=== PATIENT | female | born 1985 | race Caucasian/White ===

== ENCOUNTER 2018-09-08 20:00 | Emergency (ER) | payer BC ==
[2018-09-08] MEDS ORDERED: Sodium Chloride 0.9% 10 ML Syringe FLUSH PRN (20:29)
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
[2018-09-08 21:09] LABS: BARBITURATE SCREEN,URINE NEGATIVE (NEGATIVE); BENZODIAZEPINES SCREEN,URINE NEGATIVE (NEGATIVE); TCA SCREEN,URINE NEGATIVE (NEGATIVE); THC SCREEN,URINE 50 NG/ML NEGATIVE (NEGATIVE)
[2018-09-08 21:19] LABS: CHLORIDE,CL 103 mmol/L (98-107); SODIUM,NA 138 mmol/L (136-145)
== END 2018-09-08 22:15 | disposition home or self-care (01) ==
LOC: LL.ED 20:00
DX: O99.89 Other specified diseases and conditions complicating pregnancy, childbirth and the puerperium (principal); M54.2 Cervicalgia; O99.282 Endocrine, nutritional and metabolic diseases complicating pregnancy, second trimester; E88.09 Other disorders of plasma-protein metabolism, not elsewhere classified; E87.6 Hypokalemia; E83.42 Hypomagnesemia; Z79.899 Other long term (current) drug therapy; Z3A.29 29 weeks gestation of pregnancy; V89.2XXA Person injured in unspecified motor-vehicle accident, traffic, initial encounter
CPT/HCPCS: 36415; 72050; 80053; 80305-QW; 81001; 82150; 82550; 82553; 83605; 83690; 83735; 84484; 84550; 84702; 85025; 85610; 85730; 87086; 99285-25; G0480

== ENCOUNTER 2021-03-06 21:54 | Emergency (ER) | payer BC ==
[2021-03-06] MEDS ORDERED: Sodium Chloride 0.9% 10 ML Syringe FLUSH PRN (22:12)
--- NOTE | 2021-03-06 22:29 | EDM.PDOC ---
ED HPI GENERAL MEDICAL PROBLEM - General Chief Complaint: General Stated Complaint: CHEST PAIN Time Seen by Provider: 03/06/21 22:10 Source of Information: Reports: Patient History Limitations: Reports: No Limitations - History of Present Illness INITIAL COMMENTS - FREE TEXT/NARRATIVE: Patient presents to the ED for chest pain that started at about 2130. She was sitting on the couch watching football without any stress or trauma. it was sharp, substernal, intermittant and acccompanied with diaphoresis. No recent physical activity or exertion. She had recently eaten and over the last day eaten really rich foods due to celebrating [place] early. She has been drinking alcohol tonight, 3-4 drinks. This is not a daily thing for her but she does drink socially without problems. Not a smoker. recent menstrual cycle is just finishing but states could be . NOt on control. No family history of blood clots, heart attacks or stroke. she did recently get over a upper respiratory illness that had cough, fever runny nose. did not go get tested for covid or seen. Is not vaccinated for Covid 19. AT interview pain is gone, 0/10 at it's worse is 5/10, comes and goes without any aggrevating or alleviating factors. Did not take anything for it,. Onset: Today, Sudden Duration: Intermittent Location: Reports: Chest Quality: Reports: Stabbing (with radiation to both sides of the chest) Improves with: Reports: None Worsens with: Reports: None Associated Symptoms: Reports: Diaphoresis - Related Data Allergies Allergy/AdvReac Type Severity Reaction Status Date / Time No Known Allergies Allergy Verified 03/06/21 21:57 Home Meds: Home Meds Cyclobenzaprine [Flexeril] 5 mg PO TID PRN 09/08/18 [History] PNV95/Ferrous Fumarate/FA [ Multivitamin Tablet] 1 tab PO DAILY 09/08/18 [History] Past Medical History HEENT History: Reports: None. Denies: Impaired Vision CAREER SERVICES COORDINATOR History: Reports: Musculoskeletal History: Reports: None. Denies: Arthritis, Back Pain, Chronic, Fracture, Neck Pain, Chronic - Past Surgical History Head Surgeries/Procedures: Reports: None HEENT Surgical History: Reports: None. Denies: Adenoidectomy, Myringotomy w Tube(s), Tonsillectomy GI Surgical History: Reports: None. Denies: Hernia, Abdominal, Hernia, Inguinal, Hernia Repair/Other Female Surgical History: Reports: Breast Reduction, Other (See Below) Other Female Surgeries/Procedures: Bilateral breast reduction at age 17. C- section at full-term with first secondary to bradycardia and distress with contractions with no complications during or delivery. Neurological Surgical History: Reports: None - Past Imaging History Past Imaging History: Reports: Ultrasound (OB ultrasounds) Social & Family History - Tobacco Use Tobacco Use Status *Q: Never Tobacco User - Alcohol Use Alcohol Use History: Yes Date/Time of Last Drink Comment: several drinks tonight Alcohol Use in Last Twelve Months: Yes Alcohol Use Frequency: Socially - Recreational Drug Use Recreational Drug Use: No Drug Use in Last 12 Months: No - Living Situation & Occupation Living situation: Reports: , with Family Occupation: Employed (middle school art teacher.) ED ROS GENERAL - Review of Systems Review Of Systems: See Below Constitutional: Reports: Diaphoresis (with chest pain only) HEENT: Reports: No Symptoms. Denies: Ear Discharge, Rhinitis, Sinus Problem, Throat Pain, Throat Swelling Respiratory: Reports: No Symptoms Cardiovascular: Reports: Chest Pain. Denies: Blood Pressure Problem, Dyspnea on Exertion, Lightheadedness, Palpitations GI/Abdominal: Denies: Abdominal Pain, Constipation, Decreased Appetite, Nausea, Vomiting : Reports: No Symptoms Musculoskeletal: Reports: No Symptoms Skin: Reports: No Symptoms Neurological: Reports: No Symptoms Psychiatric: Reports: No Symptoms Hematologic/Lymphatic: Reports: No Symptoms ED EXAM, GENERAL - Physical Exam Exam: See Below Exam Limited By: No Limitations General Appearance: Alert, WD/WN, No Apparent Distress Eye Exam: Bilateral Eye: EOMI, Normal Inspection, PERRL Ears: Hearing Grossly Normal Nose: Normal Inspection, Normal Mucosa Throat/Mouth: Normal Lips, Normal Oropharynx, Normal Voice, No Airway Compromise, Other (mild dry mucous membranes) Head: Atraumatic Neck: Normal Inspection Respiratory/Chest: No Respiratory Distress, Lungs Clear, Normal Breath Sounds, No Accessory Muscle Use, Chest Non-Tender (to palpation, no reproducible pain) Cardiovascular: Regular Rate, Rhythm, No Edema, No Murmur GI/Abdominal: Normal Bowel Sounds, Soft, Non-Tender, No Organomegaly. No: Rigid, Rebound, Tender Extremities: Normal Range of Motion, No Pedal Edema Neurological: Alert, Oriented, CN II-XII Intact, Normal Cognition, No Motor/Sensory Deficits Psychiatric: Normal Affect, Normal Mood #1 Interpretation EKG Date: 03/06/21 Time: 21:58 Rhythm: NSR Rate (Beats/Min): 66 [place]: Normal P-Wave: Present QRS: Normal ST-T: Normal QT: Normal Comparison: NA - No Prior EKG Course - Vital Signs Last Recorded V/S: Last Vital Signs Temp 36.6 C 03/06/21 22:00 Pulse 74 03/06/21 22:35 Resp 14 03/06/21 22:35 BP 119/75 03/06/21 22:35 Pulse Ox 99 03/06/21 22:35 - Orders/Labs/Meds Orders: Active Orders 24 hr Category Date Time Status Cardiac Monitoring [RC] . DIRECTED Care 03/06/21 22:13 Active EKG Documentation Completion [RC] ASDIRECTED Care 03/06/21 22:11 Active Chest 2V [CR] Stat Exams 03/06/21 22:43 Ordered CORONAVIRUS COVID-19 VERA [MOLEC] Stat Lab 03/06/21 22:20 Received Sodium Chloride 0.9% [Saline Flush] Med 03/06/21 22:12 Ordered 10 ml FLUSH ASDIRECTED PRN Saline Lock Insert [OM.PC] Routine Oth 03/06/21 22:12 Ordered Medication Orders Sodium Chloride (Sodium Chloride 0.9% 10 Ml Syringe) 10 ml FLUSH ASDIRECTED PRN PRN Reason: Keep Vein Open Labs: Laboratory Tests 03/06/21 03/06/21 03/06/21 Range/Units 22:01 22:01 22:01 WBC 7.2 (4.0-10.2) K/uL RBC 4.28 (3.77-5.09) M/uL Hgb 13.5 (11.7-15.5) g/dL Hct 38.5 (34.0-46.0) % MCV 90.0 (84.0-98.0) fL MCH 31.5 (28.2-33.3) pg MCHC 35.1 (31.7-36.0) g/dL RDW 11.8 (11.2-14.1) % Plt Count 261 (150-350) K/uL Neut % (Auto) 42.1 L (45.0-80.0) % Lymph % (Auto) 45.4 (10.0-50.0) % Gilliam % (Auto) 9.6 (2.0-14.0) % Eos % (Auto) 2.6 (0.0-5.0) % Baso % (Auto) 0.3 (0.0-2.0) % Neut # (Auto) 3.04 (1.40-7.00) K/uL Lymph # (Auto) 3.28 (0.50-3.50) K/uL Gilliam # (Auto) 0.69 (0.00-1.00) K/uL Eos # (Auto) 0.19 (0.00-0.50) K/uL Baso # (Auto) 0.02 (0.00-0.20) K/uL PT 9.9 (9.6-11.3) SEC INR 1.0 D-Dimer, Quantitative (0-400) ng/mL Sodium 140 (136-145) mmol/L Potassium 3.6 (3.5-5.1) mmol/L Chloride 105 (98-107) mmol/L Carbon Dioxide 26.7 (21.0-32.0) mmol/L Anion Gap 8.3 (7-15) meq/L BUN 11 (7-18) mg/dL Creatinine 0.96 (0.51-1.17) mg/dL Est Cr Clr Drug Dosing TNP Estimated GFR (MDRD) > 60 mL/min Glucose 106 H (70-99) mg/dL Calcium 9.1 (8.5-10.1) mg/dL Total Bilirubin 0.2 (0.2-1.0) mg/dL AST 25 (15-37) U/L ALT 19 (12-78) U/L Alkaline Phosphatase 37 L (46-116) IU/L Troponin I High Sens 5 (<=51) ng/L Total Protein 6.9 (6.4-8.2) g/dL Albumin 4.0 (3.4-5.0) g/dL Lipase (73-393) U/L HCG, Qual (NEGATIVE) SARS-CoV-2 Ag (Rapid) (NEGATIVE) 03/06/21 03/06/21 03/06/21 Range/Units 22:01 22:01 22:01 WBC (4.0-10.2) K/uL RBC (3.77-5.09) M/uL Hgb (11.7-15.5) g/dL Hct (34.0-46.0) % MCV (84.0-98.0) fL MCH (28.2-33.3) pg MCHC (31.7-36.0) g/dL RDW (11.2-14.1) % Plt Count (150-350) K/uL Neut % (Auto) (45.0-80.0) % Lymph % (Auto) (10.0-50.0) % Gilliam % (Auto) (2.0-14.0) % Eos % (Auto) (0.0-5.0) % Baso % (Auto) (0.0-2.0) % Neut # (Auto) (1.40-7.00) K/uL Lymph # (Auto) (0.50-3.50) K/uL Gilliam # (Auto) (0.00-1.00) K/uL Eos # (Auto) (0.00-0.50) K/uL Baso # (Auto) (0.00-0.20) K/uL PT (9.6-11.3) SEC INR D-Dimer, Quantitative < 100 (0-400) ng/mL Sodium (136-145) mmol/L Potassium (3.5-5.1) mmol/L Chloride (98-107) mmol/L Carbon Dioxide (21.0-32.0) mmol/L Anion Gap (7-15) meq/L BUN (7-18) mg/dL Creatinine (0.51-1.17) mg/dL Est Cr Clr Drug Dosing Estimated GFR (MDRD) mL/min Glucose (70-99) mg/dL Calcium (8.5-10.1) mg/dL Total Bilirubin (0.2-1.0) mg/dL AST (15-37) U/L ALT (12-78) U/L Alkaline Phosphatase (46-116) IU/L Troponin I High Sens (<=51) ng/L Total Protein (6.4-8.2) g/dL Albumin (3.4-5.0) g/dL Lipase 170 (73-393) U/L HCG, Qual Negative (NEGATIVE) SARS-CoV-2 Ag (Rapid) (NEGATIVE) 03/06/21 Range/Units 22:20 WBC (4.0-10.2) K/uL RBC (3.77-5.09) M/uL Hgb (11.7-15.5) g/dL Hct (34.0-46.0) % MCV (84.0-98.0) fL MCH (28.2-33.3) pg MCHC (31.7-36.0) g/dL RDW (11.2-14.1) % Plt Count (150-350) K/uL Neut % (Auto) (45.0-80.0) % Lymph % (Auto) (10.0-50.0) % Gilliam % (Auto) (2.0-14.0) % Eos % (Auto) (0.0-5.0) % Baso % (Auto) (0.0-2.0) % Neut # (Auto) (1.40-7.00) K/uL Lymph # (Auto) (0.50-3.50) K/uL Gilliam # (Auto) (0.00-1.00) K/uL Eos # (Auto) (0.00-0.50) K/uL Baso # (Auto) (0.00-0.20) K/uL PT (9.6-11.3) SEC INR D-Dimer, Quantitative (0-400) ng/mL Sodium (136-145) mmol/L Potassium (3.5-5.1) mmol/L Chloride (98-107) mmol/L Carbon Dioxide (21.0-32.0) mmol/L Anion Gap (7-15) meq/L BUN (7-18) mg/dL Creatinine (0.51-1.17) mg/dL Est Cr Clr Drug Dosing Estimated GFR (MDRD) mL/min Glucose (70-99) mg/dL Calcium (8.5-10.1) mg/dL Total Bilirubin (0.2-1.0) mg/dL AST (15-37) U/L ALT (12-78) U/L Alkaline Phosphatase (46-116) IU/L Troponin I High Sens (<=51) ng/L Total Protein (6.4-8.2) g/dL Albumin (3.4-5.0) g/dL Lipase (73-393) U/L HCG, Qual (NEGATIVE) SARS-CoV-2 Ag (Rapid) Negative (NEGATIVE) Meds: Medications Generic Name Dose Route Start Last Admin Trade Name Freq PRN Reason Stop Dose Admin Sodium Chloride 10 ml 03/06/21 22:12 Sodium Chloride 0.9% 10 Ml Syringe FLUSH ASDIRECTED PRN Keep Vein Open - Radiology Interpretation Free Text/Narrative:: chest x-ray without any acute changes. preliminary read by author - Re-Assessments/Exams Free Text/Narrative Re-Assessment/Exam: 03/06/21 22:36 healthy 35 year old female presenting with about 30 minutes of intermittant chest pain afer eating rich meal and drinking alcohol and following an upper respiratory illness. Given very low risk factor, normal ekg and young age, will not give aspirin at this time, Will check for covid, labs to include test and ddimer. no pain at time of examination 03/06/21 22:46 negative testing. will get a chest x-ray. Discussed tums, acid reducing medication, limit acidic food, alcohol and follow up with pcp. Departure - Departure Time of Disposition: 22:54 Disposition: Home, Self-Care 01 Condition: Good Clinical Impression: Chest pain - Discharge Information *PRESCRIPTION DRUG MONITORING PROGRAM REVIEWED*: Not Applicable *COPY OF PRESCRIPTION DRUG MONITORING REPORT IN PATIENT CLARIBEL: Not Applicable Instructions: Nonspecific Chest Pain, Adult, Gastroesophageal Reflux Disease, Adult, [id number] Referrals: PCP,None [Primary Care Provider] - Forms: ED Department Discharge Additional Instructions: testing today was negative for covid, pneumonia, blood clots or heart attack. Y ou are given some information on GERD. Try to limit rich food, spicy or acidic food and alcohol. You can take TUMS, maalox, or an acid reducing medication like pepcid available over the counter. If problems persist, follow up with your physician for further testing. Sepsis Event Note (ED) - Focused Exam Vital Signs: Vital Signs Temp Pulse Resp BP Pulse Ox 03/06/21 22:35 74 14 119/75 99 03/06/21 22:20 78 16 132/90 99 03/06/21 22:10 67 18 139/92 H 100 03/06/21 22:00 36.6 C 66 18 145/92 H 100 - My Orders Last 24 Hours: My Active Orders 03/06/21 22:11 EKG Documentation Completion [RC] ASDIRECTED 03/06/21 22:12 Sodium Chloride 0.9% [Saline Flush] 10 ml FLUSH ASDIRECTED PRN Saline Lock Insert [OM.PC] Routine 03/06/21 22:13 Cardiac Monitoring [RC] . DIRECTED 03/06/21 22:20 CORONAVIRUS COVID-19 VERA [MOLEC] Stat 03/06/21 22:43 Chest 2V [CR] Stat - Assessment/Plan Last 24 Hours: My Active Orders 03/06/21 22:11 EKG Documentation Completion [RC] ASDIRECTED 03/06/21 22:12 Sodium Chloride 0.9% [Saline Flush] 10 ml FLUSH ASDIRECTED PRN Saline Lock Insert [OM.PC] Routine 03/06/21 22:13 Cardiac Monitoring [RC] . DIRECTED 03/06/21 22:20 CORONAVIRUS COVID-19 VERA [MOLEC] Stat 03/06/21 22:43 Chest 2V [CR] Stat
[2021-03-06 22:39] LABS: ANION GAP 8.3 meq/L (7-15); CHLORIDE,CL 105 mmol/L (98-107); SODIUM,NA 140 mmol/L (136-145)
== END 2021-03-06 23:15 | disposition home or self-care (01) ==
LOC: LL.ED 21:54
DX: R07.89 Other chest pain (principal); Z20.822 Contact with and (suspected) exposure to COVID-19
CPT/HCPCS: 36415; 71046; 80053; 83690; 84484; 84703; 85025; 85379; 85610; 87426; 93005; 93010; 99284; 99285-25

== ENCOUNTER 2022-08-04 20:27 | Emergency (ER) | payer BC ==
[2022-08-04 20:43] LABS: BASOPHILS ABSOLUTE AUTO 0.02 K/uL (0.00-0.20); BASOPHILS PERCENT AUTO 0.2 % (0.0-2.0); EOSINOPHILS ABSOLUTE AUTO 0.13 K/uL (0.00-0.50); EOSINOPHILS PERCENT AUTO 1.5 % (0.0-5.0); HEMOGLOBIN 12.3 g/dL (11.7-15.5); LYMPHOCYTES ABSOLUTE AUTO 2.68 K/uL (0.50-3.50); LYMPHOCYTES PERCENT AUTO 31.6 % (10.0-50.0); MEAN CORPUSCULAR HEMOGLOBIN 31.1 pg (28.2-33.3); MEAN CORPUSCULAR HGB CONC 35.1 g/dL (31.7-36.0); MEAN CORPUSCULAR VOLUME 88.6 fL (84.0-98.0); MONOCYTES ABSOLUTE AUTO 0.79 K/uL (0.00-1.00); MONOCYTES PERCENT AUTO 9.3 % (2.0-14.0); NEUTROPHILS ABSOLUTE AUTO 4.87 K/uL (1.40-7.00); NEUTROPHILS PERCENT AUTO 57.4 % (45.0-80.0); PLATELET COUNT,PLT 235 K/uL (150-350); RED BLOOD CELL COUNT 3.95 M/uL (3.77-5.09); RED CELL DISTRIBUTION WIDTH 11.5 % (11.2-14.1); WHITE BLOOD CELL COUNT,WBC 8.5 K/uL (4.0-10.2)
[2022-08-04 20:58] LABS: ALANINE AMINOTRANSFERASE,ALT 22 U/L (12-78); ALKALINE PHOSPHATASE 32 IU/L (46-116); ANION GAP 7.8 meq/L (7-15); ASPARTATE AMNIOTRANSFERASE,AST 18 U/L (15-37); BILIRUBIN TOTAL 0.2 mg/dL (0.2-1.0); BLOOD UREA NITROGEN,BUN 12 mg/dL (7-18); CARBON DIOXIDE,CO2 28.2 mmol/L (21.0-32.0); CHLORIDE,CL 103 mmol/L (98-107); CREATININE 0.84 mg/dL (0.51-1.17); ESTIMATED GFR 92 mL/min (>=60); GLUCOSE RANDOM 114 mg/dL (70-99); POTASSIUM,K 3.5 mmol/L (3.5-5.1); PROTEIN TOTAL,TP 6.6 g/dL (6.4-8.2); SODIUM,NA 139 mmol/L (136-145)
[2022-08-04 21:14] LABS: APPEARANCE,URINE SLIGHTLY CLOUDY; BILIRUBIN,URINE NEGATIVE (NEGATIVE); COLOR,URINE YELLOW; GLUCOSE,URINE NEGATIVE (NEGATIVE); KETONES,URINE NEGATIVE (NEGATIVE); LEUKOCYTE ESTERASE,URINE NEGATIVE (NEGATIVE); NITRITE,URINE NEGATIVE (NEGATIVE); OCCULT BLOOD,URINE LARGE (NEGATIVE); PROTEIN,URINE NEGATIVE (NEGATIVE); UROBILINOGEN,URINE 0.2 E.U./dL (0.2-1.0)
[2022-08-04 21:22] LABS: EPITHELIAL CELLS,URINE FEW /LPF; WBC,URINE 0-5 /HPF
[2022-08-04 21:23] LABS: BACTERIA,URINE RARE /HPF (NONE TO FEW)
== END 2022-08-04 21:40 ==
LOC: LL.ED 20:27
DX: O20.9 Hemorrhage in early pregnancy, unspecified (principal)
CPT/HCPCS: 36415; 80053; 81001; 84702; 85025; 99284